=== PATIENT | male | born 1945 | race Caucasian/White ===

== ENCOUNTER 2018-06-22 10:22 | Emergency (ER) | payer MEDICARE ==
[2018-06-22 10:32] VITALS: TEMP 97.5
[2018-06-22 11:02] LABS: APPEARANCE,URINE Clear; BILIRUBIN,URINE NEGATIVE (NEGATIVE); COLOR,URINE Yellow; GLUCOSE, URINE (UA) NEGATIVE (NEGATIVE); KETONES,URINE NEGATIVE (NEGATIVE); LEUKOCYTE ESTERASE ,URINE NEGATIVE (NEGATIVE); NITRATE,URINE NEGATIVE (NEGATIVE); OCCULT BLOOD,URINE TRACE INTACT (NEG-TRACE); PH,URINE 6.5; UROBILINOGEN,URINE 0.2 (0.2-1.0 EU)
[2018-06-22 11:13] LABS: BASOPHILS % (AUTO) 0 % (0-3); EOSINOPHILS % (AUTO) 1 % (0-9); HEMATOCRIT 40 % (39-53); HEMOGLOBIN 13.3 gm/dl (13.5-17.7); LYMPHOCYTES % (AUTO) 16.2 % (10-50); MEAN CORPUSCULAR HGB CONC 33.4 gm/dl (32.0-36.0); MEAN CORPUSCULAR VOLUME 84 fL (80-100); NEUTROPHILS % (AUTO) 73.7 % (37-80)
[2018-06-22] MEDS ORDERED: HALOPERIDOL LACTATE 5 MG/ML SOL IM ONE (11:16)
[2018-06-22] MEDS ORDERED: HALOPERIDOL LACTATE 5 MG/ML SOL ONE (11:18)
[2018-06-22 11:22] LABS: BACTERIA RARE (< 1+); CRYSTALS NEGATIVE (0-3 AVE/HPF); EPITHELIAL CELLS NEGATIVE (SQUAMOUS); RBC,URINE 0-1 (0-3AV/HPF); WBC,URINE 0-1 (0-5AV/HPF)
[2018-06-22 11:36] LABS: BLOOD UREA NITROGEN 18 mg/dl (7-18); CALCIUM 8.5 mg/dl (8.5-10.1); CHLORIDE 102 mMol/L (98-107); CREATININE 1.04 mg/dl (0.80-1.30); GLUCOSE 148 mg/dl (74-106); POTASSIUM 3.9 mMol/L (3.5-5.1); SODIUM 139 mMol/L (136-145); THYROID STIMULATING HORMONE 2.993 uIU/ml (0.358-3.740); TROP I < 0.017 ng/ml (0.000-0.056)
[2018-06-22 13:49] VITALS: RESP 16
[2018-06-22 13:50] VITALS: BP 130/79; PULSE 93; O2SAT 95
== END 2018-06-22 13:29 | DRG 312 ==
LOC: ED 10:22
DX: R55 Syncope and collapse (principal)
CPT/HCPCS: 36415; 70450; 80048; 81001; 84443; 84484; 85025; 93005; 99285; J1630